=== PATIENT | male | born 1990 | race American Indian/Alaskan Native ===

== ENCOUNTER 2017-08-15 13:14 | Emergency (ER) | payer OTHER ==
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
[2017-08-15] MEDS ORDERED: TORADOL IM ONE (15:36)
[2017-08-15] MEDS ORDERED: DECADRON IM ONE (15:36)
[2017-08-15 16:16] VITALS: BP 115/70
== END 2017-08-15 16:14 | disposition home or self-care (01) ==
LOC: ED 13:14
DX: M54.5 Low back pain (principal); F17.200 Nicotine dependence, unspecified, uncomplicated; V89.2XXA Person injured in unspecified motor-vehicle accident, traffic, initial encounter; Y93.9 Activity, unspecified; Y99.9 Unspecified external cause status; Y92.410 Unspecified street and highway as the place of occurrence of the external cause
CPT/HCPCS: 96372; 99282; J1100; J1885

== ENCOUNTER 2018-11-10 14:18 | Emergency (ER) | payer OTHER ==
[2018-11-10 14:37] VITALS: BP 171/84
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
[2018-11-10 17:04] LABS: Bilirubin,Urine NEG (Negative); Blood,Urine NEG (Negative); Color,Urine Yellow (Yellow); Mucus,Urine FEW /HPF; Protein,Urine <15 mg/dL mg/dL (Negative)
== END 2018-11-10 18:10 | disposition home or self-care (01) ==
LOC: ED 14:18
DX: R35.0 Frequency of micturition (principal)
CPT/HCPCS: 81001; 99283